=== PATIENT | female | born 1990 | race Caucasian/White ===

== ENCOUNTER 2021-05-05 21:41 | Emergency (ER) | payer SELFPAY ==
[~2021-05-05] VITALS: Ht 167.6 cm; Wt 101.2 kg
[~2021-05-05 21:41] MED LIST: SULF-954 PO
[2021-05-05 21:43] VITALS: BP 140/90
--- NOTE | 2021-05-05 21:46 | NUR ---
TO LOBBY A/W BED AMBULATORY
--- NOTE | 2021-05-05 22:00 | NUR ---
PT TAKEN TO BED 09.
[2021-05-05] MEDS ORDERED: NACL 0.9% 1,000 ML IV ONE (22:10)
--- NOTE | 2021-05-05 22:10 | NUR ---
31 YO F BIB SELF WITH C/C OF 8/10 LEFT LOWER ABD PAIN, RADIATING TO HER RT SIDE. +NAUSEA AND +DIARRHEA XYESTERDAY. PT STATES SHE IS ON HER MENSTRUAL CYCLE BUT HAS NEVER FELT THIS MUCH PAIN BEFORE. PT DENIES TAKING MEDICATION FOR PAIN. ABD IS SOFT AND DISTENDED. DENIES HX AND RX ALLERGY:METRONIDAZOLE
[2021-05-05] MEDS ORDERED: KETOROLAC 30 MG/ML VIAL ONE (23:10)
[2021-05-05] MEDS ORDERED: KETOROLAC 30 MG/ML VIAL IVP ONE (23:10)
--- NOTE | 2021-05-05 23:32 | NUR ---
PT TAKEN TO CT.
--- NOTE | 2021-05-05 23:38 | NUR ---
PT RETURN FROM RADIOLOGY
[2021-05-05 23:39] LABS: BASOPHILS # (AUTO) 0.1 K/uL (0.00-0.22); BASOPHILS % (AUTO) 0.3 % (0.0-2.0); EOSINOPHILS % (AUTO) 0.1 % (0.0-4.0); HEMATOCRIT 37.9 % (36-48); HEMOGLOBIN 12.2 g/dL (12.0-16.0); LYMPHOCYTES # (AUTO) 1.6 K/uL (2.5-16.5); LYMPHOCYTES % (AUTO) 9.8 % (20.5-51.1); MEAN CORPUSCULAR HEMOGLOBIN 24 pg (27-31); MEAN CORPUSCULAR HGB CONC 32 g/dL (33-37); MEAN CORPUSCULAR VOLUME 75.1 fL (80-94); MONOCYTES # (AUTO) 0.8 K/uL (0.8-1.0); MONOCYTES % (AUTO) 4.7 % (1.7-9.3); NEUTROPHILS # (AUTO) 14.3 K/uL (1.8-7.7); NEUTROPHILS % (AUTO) 85.1 % (42.2-75.2); PLATELET COUNT (AUTO) 265 K/uL (140-450); RED BLOOD CELL COUNT(AUTO) 5.05 MIL/uL (4.20-5.40); RED CELL DISTRIBUTION WIDTH 15.3 % (11.6-13.7); WHITE BLOOD COUNT (AUTO) 16.8 K/uL (4.8-10.8)
[2021-05-05 23:43] LABS: ALBUMIN 3.6 g/dL (3.4-5.0); ANION GAP 12.4 (8-16); CARBON DIOXIDE 27.5 mmol/L (21-32); CREATININE 0.6 mg/dL (0.6-1.3); POTASSIUM 3.9 mmol/L (3.5-5.1); TOTAL BILIRUBIN 0.4 mg/dL (0.0-1.0)
--- NOTE | 2021-05-06 00:10 | NUR ---
PT IS AWAKE AND ALERT. VSS. PT IS IN STABLE CONDITION. SIDE RAILS X2 AND BED ANGELA IN LOWEST POSITION.
[2021-05-06] MEDS ORDERED: ACET-8386 PO (00:51)
[2021-05-06] MEDS ORDERED: IBUP-2213 PO (00:51)
[2021-05-06 01:09] LABS: APPEARANCE,URINE CLEAR (CLEAR); BILIRUBIN,URINE NEGATIVE (NEGATIVE); BLOOD, URINE 3+ (NEGATIVE); COLOR,URINE YELLOW (YELLOW); LEUKOCYTE ESTERASE ,URINE NEGATIVE (NEGATIVE); NITRITE, URINE NEGATIVE (NEGATIVE); UGLUCOSE 2+ (NEGATIVE)
[2021-05-06 01:22] LABS: RBC,URINE 0-5 /HPF (0-5); WBC,URINE 0-5 /HPF (0-5)
[2021-05-06 01:30] VITALS: BP 125/79
--- NOTE | 2021-05-06 01:30 | NUR ---
Patient discharged with v/s stable. Written and verbal after care instructions given and explained. Patient alert, oriented and verbalized understanding of instructions. Ambulatory with steady gait. All questions addressed prior to discharge. ID band removed. Patient advised to follow up with PMD. Rx of NORCO AND IBUPROFEN given. Patient educated on indication of medication including possible reaction and side effects. Opportunity to ask questions provided and answered.
== END 2021-05-06 01:30 | disposition home or self-care (01) ==
LOC: MED 21:41
DX: N83.201 Unspecified ovarian cyst, right side (principal); Z88.8 Allergy status to other drugs, medicaments and biological substances
CPT/HCPCS: 36415; 74176; 80053; 81001; 81025; 83690; 85025; 96361; 96374; 99285; J1885; J7030